=== PATIENT | female | born 1960 | race Asian ===

== ENCOUNTER 2020-12-03 18:45 | Inpatient (IN) | payer SELFPAY ==
[2020-12-03 19:14] LABS: Absolute Lymphocytes (CBC) 1.9 K/uL (0.7-4.9); Basophils % 0.3 % (0-1.3); Hematocrit 30.5 % (36.0-45.0); Lymphocytes % 17.9 % (15.3-44.8); MPV 6.6 fL (7.6-11.3); RBC Red Blood Cell Count 3.45 M/uL (3.86-4.86)
[2020-12-03 19:15] LABS: Protime INR 0.94
--- NOTE | 2020-12-03 19:26 | RAD REPORT ---
EXAM DESCRIPTION: CT - Head Brain Wo Cont - 12/03/2020 7:18 pm CLINICAL HISTORY: Headache;Dizziness COMPARISON: No comparisons TECHNIQUE: All CT scans are performed using dose optimization technique as appropriate and may inclu de automated exposure control or mA/KV adjustment according to patient size. FINDINGS: No intracranial hemorrhage, hydrocephalus or extra-axial fluid collection.No areas of brai n edema or evidence of midline shift. The paranasal sinuses and mastoids are clear. The calvarium is intact. IMPRESSION: No acute intracranial abnormality.
[2020-12-03 19:35] LABS: ALT/SGPT 26 U/L (12-78); AST/SGOT 25 U/L (15-37); Albumin 3.5 g/dL (3.4-5.0); Alkaline Phosphatase 60 U/L (45-117); BUN Blood Urea Nitrogen 10 mg/dL (7-18); Bicarbonate 23 mmol/L (21-32); Bilirubin Direct < 0.1 mg/dL (0-0.2); Bilirubin Total 0.3 mg/dL (0.2-1.0); Glucose Level 131 mg/dL (74-106); Magnesium 1.6 mg/dL (1.8-2.4); NT PRO-BNP 34 pg/mL (<125); Protein, Total 7.1 g/dL (6.4-8.2); Sodium Level 122 mmol/L (136-145); Troponin (Emerg Dept Use Only) < 0.02 ng/mL (0.0-0.045)
[2020-12-03 19:37] LABS: Potassium 2.7 mmol/L (3.5-5.1)
[2020-12-03] MEDS ORDERED: NA CHLORIDE 0.9% 500 ML ONE ×2 (20:04→20:38)
[2020-12-03] MEDS ORDERED: MECLIZINE HCL 12.5 MG TAB ONE (20:04)
[2020-12-03] MEDS ORDERED: ONDANSETRON 4 MG/2 ML VIAL ONE (20:04)
--- NOTE | 2020-12-03 20:17 | RAD REPORT ---
EXAM DESCRIPTION: RAD - Chest Single View - 12/03/2020 7:11 pm CLINICAL HISTORY: general weakness COMPARISON: No comparisons FINDINGS: No evidence of edema or pneumonia. The heart size is within normal limits.No acute osseous abnormality. No significant pleural effusions or pneumothorax. IMPRESSION: No acute cardiopulmonary disease.
[2020-12-03] MEDS ORDERED: MAGNESIUM SULFATE 1 gm IVPB 1 GM/100 ML BAG IV ONE (20:38)
[2020-12-03] MEDS ORDERED: KCL 20 MEQ/100 mL IVPB 20 MEQ/100 ML BAG IV ONE (20:39)
[2020-12-03 21:32] LABS: Urine Blood Trace-intact (Negative); Urine Glucose Negative (Negative); Urine Protein Negative (Negative); Urine Specific Gravity 1.015 (1.005-1.030)
[2020-12-03 21:32] LABS: Potassium 3.2 mmol/L (3.5-5.1)
--- NOTE | 2020-12-03 21:37 | P.HP ---
Certification for Inpatient Patient admitted to: Inpatient Patient will require the following post-hospital care: None Practitioner: I am a practitioner with admitting privileges, knowledge of patient current condition, hospital course, and medical plan of care. Services: Services provided to patient in accordance with Admission requirements found in Title 42 Section 412.3 of the Code of Federal Regulations Patient History Date of Service: 12/03/20 Primary Care Provider: None Reason for admission: Hyponatremia, hypokalemia History of Present Illness: 60-year-old [place] presents emergency department for confusion, generalized weakness, dizziness, nausea. [place] when she began complaining of the symptoms. Patient was evaluated in the emergency department, labs were significant for white blood cell count 10.6 hemoglobin 10.6 hematocrit 30.5 sodium 122 potassium 2.7 chloride 86 glucose 151. ED provider consulted with nephrology recommended 1 L normal saline bolus and repeat sodium level. Will admit for further evaluation and management. - Past Medical/Surgical History -: none -: Uterine cancer -: Hysterectomy Psychosocial/ Personal History: Patient lives at home with family - Family History Family History: Reviewed- Non-Contributory - Social History Smoking Status: Never smoker Alcohol use: No CD- Drugs: No Caffeine use: Yes Place of Residence: Home Review of Systems 10-point ROS is otherwise unremarkable General: Weakness, Malaise Physical Examination - Physical Exam General: Alert, In no apparent distress HEENT: Atraumatic, PERRLA, Mucous membr. moist/pink, EOMI, Sclerae nonicteric Neck: Supple, 2+ carotid pulse no bruit, No LAD, Without JVD or thyroid abnormality Respiratory: Clear to auscultation bilaterally, Normal air movement Cardiovascular: Regular rate/rhythm, Normal S1 S2 Gastrointestinal: Normal bowel sounds, No tenderness Musculoskeletal: No tenderness Integumentary: No rashes Neurological: Normal speech, Normal strength at 5/5 x4 extr, Normal tone, Normal affect - Studies Laboratory Data (last 24 hrs) 12/03/20 21:02: Sodium 121 L, Potassium 3.2 L, BUN 9, Creatinine 0.69, Glucose 131 H 12/03/20 18:45: PT 10.8, INR 0.94 12/03/20 18:45: WBC 10.60, Hgb 10.6 L, Hct 30.5 L, Plt Count 289 12/03/20 18:45: Sodium 122 L, Potassium 2.7 L*, BUN 10, Creatinine 0.69, Glucose 131 H, Magnesium 1.6 L, Total Bilirubin 0.3, AST 25, ALT 26, Alkaline Phosphatase 60 Assessment and Plan - Plan Assessment: Hyponatremia likely secondary to dehydration Hypokalemia Plan: Hyponatremia likely secondary to dehydration: Patient received 1 L normal saline bolus in the emergency department, recheck BMP pending, will discuss case with nephrology after results have returned to determine further plan of care. Daughter reports patient has relatively poor oral intake and did not drink much water while in the sun all day today, likely related to dehydration. Serum/urine osmolality pending, urine sodium pending. Patient does not take any diuretics or other home medications. Thyroid panel with morning labs. Hypokalemia: Protocol in place. DVT PPX: Code status: Discharge Plan: Home Plan to discharge in: 48 Hours - Advance Directives Does patient have a Living Will: No Does patient have a Durable POA for Healthcare: No - Code Status/Comfort Care Code Status Assessed: Yes (Full code) Critical Care: No Time Spent Managing Pts Care (In Minutes): 55
[2020-12-03 23:50] LABS: Urine Bacteria <20 /HPF (<20); Urine RBC <5 /HPF (NONE SEEN); Urine Urothelial Cells <5 /HPF (NONE SEEN)
[2020-12-03 23:57] LABS: Potassium 3.7 mmol/L (3.5-5.1)
[2020-12-04] MEDS ORDERED: NA CHLORIDE 0.9% 1,000 ML ONE
[2020-12-04] MEDS ORDERED: ACETAMINOPHEN 500 MG TAB PO PRN (01:45)
[2020-12-04] MEDS ORDERED: ONDANSETRON 4 MG/2 ML VIAL IV PRN (01:45)
[2020-12-04] MEDS ORDERED: NA CHLORIDE 0.9% 1,000 ML IV SCH (01:45)
[2020-12-04 04:30] LABS: Basophils % 0.1 % (0-1.3); Hematocrit 30.1 % (36.0-45.0); Lymphocytes % 11.9 % (15.3-44.8); MPV 6.6 fL (7.6-11.3); RBC Red Blood Cell Count 3.44 M/uL (3.86-4.86)
[2020-12-04 04:57] LABS: Albumin 3.3 g/dL (3.4-5.0); Bilirubin Total 0.4 mg/dL (0.2-1.0); Magnesium 2.2 mg/dL (1.8-2.4); Potassium 4.3 mmol/L (3.5-5.1); Protein, Total 7.1 g/dL (6.4-8.2); Thyroid Stimulating Hormone 0.654 uIU/mL (0.360-3.740)
[2020-12-04 05:40] VITALS: BMI 25.4
[2020-12-04] MEDS ORDERED: ENOXAPARIN 40 MG/0.4 ML SQ ONE (07:51)
[2020-12-04 08:25] VITALS: O2SAT 97
[2020-12-04] MEDS ORDERED: ENOXAPARIN 40 MG/0.4 ML SQ SCH (09:00)
[2020-12-04 11:13] VITALS: BP 96/62; TEMP 97.8
--- NOTE | 2020-12-04 12:27 | P.CNS ---
Date of Consult: 12/04/20 Reason for Consult: Hyponatremia Requesting Physician: Ceasar Levine Primary Care Provider: None Chief Complaint: Hyponatremia, hypokalemia History of Present Illness: 60-year-old Scottish presents emergency department for confusion, generalized weakness, dizziness, nausea. [place] the beach [place] when she began complaining of the symptoms. Patient was evaluated in the emergency department, labs were significant for white blood cell count 10.6 hemoglobin 10.6 hematocrit 30.5 sodium 122 potassium 2.7 chloride 86 glucose 151. ED provider consulted with nephrology recommended 1 L normal saline bolus and repeat sodium level. Will admit for further evaluation and management. Allergies No Known Allergies Allergy (Unverified 12/04/20 01:44) Home medications list reviewed: Yes Home Medications: NK [No Home Meds] 12/04/20 - Past Medical/Surgical History Diabetic: No -: none -: Uterine cancer -: Hysterectomy Psychosocial/ Personal History: Patient lives at home with family - Social History Alcohol use: No CD- Drugs: No Caffeine use: Yes Place of Residence: Home Review of Systems 10-point ROS is otherwise unremarkable Physical Examination Temp Pulse Resp BP Pulse Ox 97.8 F 73 14 96/62 97 12/04/20 11:12 12/04/20 11:12 12/04/20 11:12 12/04/20 11:12 12/04/20 11:12 General: Oriented x3, Cooperative HEENT: Atraumatic Neck: Supple Respiratory: Clear to auscultation bilaterally Cardiovascular: No edema, Regular rate/rhythm Gastrointestinal: Soft and benign, Non-distended Musculoskeletal: No clubbing, No contractures Integumentary: No rashes, No cyanosis Neurological: Normal speech Laboratory Data (last 24 hrs) 12/03/20 21:02: Sodium 121 L, Potassium 3.2 L, BUN 9, Creatinine 0.69, Glucose 131 H 12/03/20 18:45: PT 10.8, INR 0.94 12/03/20 18:45: WBC 10.60, Hgb 10.6 L, Hct 30.5 L, Plt Count 289 12/03/20 18:45: Sodium 122 L, Potassium 2.7 L*, BUN 10, Creatinine 0.69, Glucose 131 H, Magnesium 1.6 L, Total Bilirubin 0.3, AST 25, ALT 26, Alkaline Phosphatase 60 Imagings Data: EXAM DESCRIPTION: RAD - Chest Single View - 12/03/2020 7:11 pm CLINICAL HISTORY: general weakness COMPARISON: No comparisons FINDINGS: No evidence of edema or pneumonia. The heart size is within normal limits.No acute osseous abnormality. No significant pleural effusions or pneumothorax. IMPRESSION: No acute cardiopulmonary disease. EXAM DESCRIPTION: CT - Head Brain Wo Cont - 12/03/2020 7:18 pm CLINICAL HISTORY: Headache;Dizziness COMPARISON: No comparisons TECHNIQUE: All CT scans are performed using dose optimization technique as appropriate and may include automated exposure control or mA/KV adjustment according to patient size. FINDINGS: No intracranial hemorrhage, hydrocephalus or extra-axial fluid collection.No areas of brain edema or evidence of midline shift. The paranasal sinuses and mastoids are clear. The calvarium is intact. IMPRESSION: No acute intracranial abnormality. Conclusions/Impression: Hyponatremia improving with NS -Encourage nutrition Hypocalcemia -Recommend Vitamin D Hypomagnesemia -Replete magnesium Anemia in chronic illness -Monitor H&H Thank you kindly for the consultation. Case reviewed with Dr. Levine
[2020-12-04 12:51] LABS: BUN Blood Urea Nitrogen 11 mg/dL (7-18); Bicarbonate 29 mmol/L (21-32); Glucose Level 125 mg/dL (74-106); Potassium 4.1 mmol/L (3.5-5.1); Sodium Level 131 mmol/L (136-145)
--- NOTE | 2020-12-04 13:02 | P.DS ---
Admission Date: 12/03/20 Discharge Date: 12/04/20 Primary Care Provider: None Disposition: ROUTINE DISCHARGE Discharge Condition: GOOD Reason for Admission: Hyponatremia, hypokalemia Consultations: Nephrology - Dr. Domníguez Procedures: CXR (12/03): No evidence of edema or pneumonia. The heart size is within normal limits.No acute osseous abnormality. No significant pleural effusions or pneumothorax. IMPRESSION: No acute cardiopulmonary disease. CT Head (12/03): No intracranial hemorrhage, hydrocephalus or extra-axial fluid collection.No areas of brain edema or evidence of midline shift. The paranasal sinuses and mastoids are clear. The calvarium is intact. IMPRESSION: No acute intracranial abnormality. Problem List Hyponatremia secondary to dehydration / poor PO intake Hypokalemia Brief History of Present Illness: 60-year-old Spanish presents emergency department for confusion, generalized weakness, dizziness, nausea. Patient [place] the beach [place] with [place] when she began complaining of the symptoms. Patient was evaluated in the emergency department, labs were significant for white blood cell count 10.6 hemoglobin 10.6 hematocrit 30.5 sodium 122 potassium 2.7 chloride 86 glucose 151. ED provider consulted with nephrology recommended 1 L normal saline bolus and repeat sodium level. Will admit for further evaluation and management. Hospital Course: Patient's sodium improved to 131 with IVF. Her symptoms resolved and she was feeling back to her baseline. She ambulated to bathroom and was tolerating PO without issue. Family requested to be discharged as they were from out of town and would like to f/u with her doctor at home. Nephrology was initially consulted on admission given electrolyte abnormalities. Patient's recheck sodium remained stable at 131 after several hours of being off IVF. She was deemed stable for discharge home. No medications were prescribed. Vital Signs/Physical Exam: Temp Pulse Resp BP Pulse Ox 97.8 F 73 14 96/62 97 12/04/20 11:12 12/04/20 11:12 12/04/20 11:12 12/04/20 11:12 12/04/20 11:12 General: Alert, In no apparent distress, Oriented x3 HEENT: PERRLA, Sclerae nonicteric Neck: Supple, No LAD Respiratory: Clear to auscultation bilaterally, Normal air movement Cardiovascular: No edema, Regular rate/rhythm, Normal S1 S2 Gastrointestinal: Soft and benign, Non-distended, No tenderness Musculoskeletal: No tenderness Integumentary: No rashes, No significant lesion Neurological: Normal speech, Normal strength at 5/5 x4 extr, Normal affect Laboratory Data at Discharge: WBC 8.70 K/uL (4.3-10.9) D 12/04/20 04:16 Hgb 10.7 g/dL (12.0-15.0) L 12/04/20 04:16 Hct 30.1 % (36.0-45.0) L 12/04/20 04:16 Plt Count 276 K/uL (152-406) 12/04/20 04:16 PT 10.8 SECONDS (9.5-12.5) 12/03/20 18:45 INR 0.94 12/03/20 18:45 Sodium 131 mmol/L (136-145) L 12/04/20 12:25 Potassium 4.1 mmol/L (3.5-5.1) 12/04/20 12:25 BUN 11 mg/dL (7-18) 12/04/20 12:25 Creatinine 0.63 mg/dL (0.55-1.3) 12/04/20 12:25 Glucose 125 mg/dL (74-106) H 12/04/20 12:25 Magnesium 2.2 mg/dL (1.8-2.4) D 12/04/20 04:16 Total Bilirubin 0.4 mg/dL (0.2-1.0) 12/04/20 04:16 AST 27 U/L (15-37) 12/04/20 04:16 ALT 27 U/L (12-78) 12/04/20 04:16 Alkaline Phosphatase 57 U/L (45-117) 12/04/20 04:16 Triglycerides 219 mg/dL (<150) H 12/04/20 04:16 Cholesterol 220 mg/dL (<200) H 12/04/20 04:16 HDL Cholesterol 53 mg/dL (40-60) 12/04/20 04:16 Cholesterol/HDL Ratio 4.15 12/04/20 04:16 Home Medications: NK [No Home Meds] 12/04/20 Physician Discharge Instructions: You were found to be hyponatremic (low sodium). Likely from dehydration. You improved with IV fluid / rehydration. Your symptoms resolved and your sodium improved. Please ensure you are adequately hydrated and drink more water if you are exercising or out in the hot sun.. Follow up with PCP in 3-5 days. Recommend having a recheck of your sodium levels at that time as well. Diet: Regular Activity: Ad skylar Followup: NONE,NONE [Primary Care Provider] - 1 Week Time spent managing pt's care (in minutes): 40
--- NOTE | 2020-12-05 16:59 | ER ---
Nurse's Notes [facility] Name: Cash Bell Age: 60 yrs Sex: Female : 1960 Arrival Date: 12/03/2020 Time: 18:45 Bed 27 Private MD: Diagnosis: Hypo-osmolality and hyponatremia;Dizziness and giddiness;Hypokalemia Presentation: 12/03 18:46 Chief complaint: Patient's son or daughter states: "[place] 1000 and about two hours ago she said she didn't feel well. We gave her some Advil and just a little bit ago she said that she felt like she couldn't breath and she felt sick.". Coronavirus screen: Client denies travel out of the [place] in the last 14 days. difficulty breathing, Client presents with at least one sign or symptom that may indicate coronavirus-19. Standard/surgical mask placed on the client. Provider contacted for isolation considerations. Ebola Screen: Patient denies exposure to infectious person. Patient denies travel to an Ebola-affected area in the 21 days before illness onset. Initial Sepsis Screen: Does the patient meet any 2 criteria? No. Patient's initial sepsis screen is negative. Does the patient have a suspected source of infection? No. Patient's initial sepsis screen is negative. Risk Assessment: Do you want to hurt yourself or someone else? Patient reports no desire to harm self or others. Onset of symptoms was December 03, 2020. 18:46 Acuity: ABRAHAM 2 ss 18:46 Method Of Arrival: Wheelchair Triage Assessment: 12/04 00:38 Respiratory: Onset: The symptoms/episode began/occurred today, the patient has moderate kg shortness of breath. Historical: - Allergies: 12/03 18:48 No Known Allergies; ss - Home Meds: 18:48 None [Active]; ss - PMHx: 18:48 None; ss - Immunization history:: Adult Immunizations up to date, Client reports receiving the 2nd dose of the Covid vaccine. - Social history:: Smoking status: Patient denies any tobacco usage or history of. Screenin:43 Abuse screen: Denies threats or abuse. Denies injuries from another. Nutritional kg screening: No deficits noted. Tuberculosis screening: No symptoms or risk factors identified. Fall Risk None identified. No fall in past 12 months (0 pts). Secondary diagnosis (15 points) impaired mobility, IV access (20 points). Ambulatory Aid- None/Bed Rest/Nurse Assist (0 pts). Gait- Weak (10 pts.). Mental Status- Oriented to own ability (0 pts). Total Wyman Fall Scale indicates Low Risk Score (25-44 pts). Fall prevention measures have been instituted. Side Rails Up X 2 Placed close to Nursing Station Family Present and informed to notify staff if they need to leave bedside As available Patient and Family Educated on Fall Prevention Program and strategies. Assessment: 19:30 General: Appears uncomfortable, Behavior is anxious, restless. Pain: Complains of pain kg in Generalized. Neuro: Reports numbness in Generalized. Cardiovascular: Reports shortness of breath, Heart tones S1 S2 Capillary refill < 3 seconds Pulses are 3+ in right radial artery and left radial artery Rhythm is regular. Respiratory: Reports shortness of breath at rest Airway is patent Trachea midline Respiratory effort is even, unlabored, relaxed, Breath sounds are clear bilaterally. GI: No deficits noted. : No signs and/or symptoms were reported regarding the genitourinary system. : No deficits noted. 12/04 00:15 Reassessment: Patient reports continued dizziness at this time; Tong Terry, MACHINE ROOM ENGINEER aware. lp1 Vital Signs: 12/03 18:46 BP 115 / 71; Pulse 68; Resp 20; Temp 98.1(TE); Pulse Ox 100% on R/A; Weight 58.97 kg; ss Pain 0/10; 20:00 BP 116 / 67; Pulse 85; Resp 20; Pulse Ox 100% on R/A; kg 20:30 BP 119 / 76; Pulse 81; Resp 24; Pulse Ox 100% on R/A; kg 21:00 BP 108 / 85; Pulse 88; Resp 26; Pulse Ox 100% on R/A; kg 21:30 BP 115 / 74; Pulse 80; Resp 22; Pulse Ox 100% ; kg 22:00 BP 105 / 65; Pulse 77; Resp 25; Pulse Ox 100% on R/A; kg 23:00 BP 105 / 57; Pulse 83; Resp 18; Pulse Ox 100% ; kg 23:30 BP 102 / 71; Pulse 79; Resp 18; Pulse Ox 100% ; kg 23:45 BP 116 / 74; Pulse 83; Resp 19; Pulse Ox 100% ; kg 12/04 00:00 BP 109 / 61; Pulse 88; Resp 20; Pulse Ox 100% ; kg 00:30 BP 103 / 78; Pulse 84; Resp 20; Pulse Ox 100% ; kg ED Course: 12/03 18:45 Patient arrived in ED. la1 18:45 Inserted saline lock: 20 gauge in right antecubital area, using aseptic technique. dh3 Blood collected. 18:47 Shailesh Mclean PA is PHCP. cp 18:47 Bunny Odom MD is Attending Physician. cp 18:47 Triage completed. ss 18:48 Arm band placed on right wrist. ss 18:56 Initial lab(s) drawn, by ri, sent to lab. dh3 18:58 Jenn Rodarte RN is Primary Nurse. kg 19:01 Attending Physician role handed off by Bunny Odom MD cp 19:01 Evangelista Cox MD is Attending Physician. cp 19:11 XRAY Chest (1 view) In Process Unspecified. EDMS 19:16 CT Head Brain wo Cont In Process Unspecified. EDMS 21:00 Inserted saline lock: 20 gauge in right antecubital area, using aseptic technique. kg 22:43 Patient has correct armband on for positive identification. Fall risk band placed. Bed kg in low position. Adult w/ patient. 12/04 00:15 Report received from ADRI Barajas. lp1 00:23 Bunny Nowak MD is Hospitalizing Provider. cp 00:30 No provider procedures requiring assistance completed. Patient admitted, IV remains in lp1 place. Administered Medications: 12/03 19:49 Drug: NS 0.9% 500 ml Route: IV; Rate: bolus; Site: right antecubital; kg 19:50 Drug: Meclizine 25 mg Route: PO; kg 19:50 Drug: Zofran (Ondansetron) 4 mg Route: IVP; Site: right antecubital; kg 20:28 Drug: Potassium Chloride 20 mEq Route: IV; Rate: calculated rate; Site: right kg antecubital; 20:28 Drug: Magnesium Sulfate 1 grams Route: IVPB; Infused Over: 1 hrs; Site: right kg antecubital; 20:29 Drug: NS 0.9% 500 ml Route: IV; Rate: bolus; Site: right antecubital; kg 12/04 00:41 Drug: NS 0.9% 1000 ml Route: IV; Rate: 75 ml/hr; Site: right antecubital; lp1 01:23 Follow up: IV Status: Infusion continued upon admission lp1 Outcome: 00:24 Decision to Hospitalize by Provider. cp 00:30 Admitted to ER Hold. Please see [facility] for further documentation. lp1 00:30 Condition: stable 00:30 Instructed on the need for admit. 14:12 Patient left the ED. ld1 Signatures: Dispatcher [employer] EDMS Suyapa Fraser RN RN Carlyn Sweeney RN RN lp1 Tong Terry, OWNER/PHOTOGRAPHER-C OWNER/PHOTOGRAPHER-Cla1 Shailesh Mclean PA PA cp Herrera, Deanna [facility] Anila Castaneda, RN RN ld1 Jenn Rodarte RN RN kg
--- NOTE | 2020-12-05 16:59 | EDPHYS ---
Physician Documentation [facility] Name: Cash Bell Age: 60 yrs Sex: Female : 1960 Arrival Date: 12/03/2020 Time: 18:45 Bed 27 Private MD: ED Physician Evangelista Cox HPI: 12/03 18:55 This 60 yrs old Female presents to ER via Wheelchair with complaints of Shortness cp Of Breath, Nausea. 18:55 The patient presents with dizziness, generalized weakness. cp 18:55 Onset: The symptoms/episode began/occurred suddenly, today, [place] beach. Associated cp signs and symptoms: Pertinent positives: shortness of breath, Pertinent negatives: abdominal pain, chest pain, confusion, diaphoresis, focal weakness, syncope. Historical: - Allergies: 18:48 No Known Allergies; ss - Home Meds: 18:48 None [Active]; ss - PMHx: 18:48 None; ss - Immunization history:: Adult Immunizations up to date, Client reports receiving the 2nd dose of the Covid vaccine. - Social history:: Smoking status: Patient denies any tobacco usage or history of. ROS: 19:00 Constitutional: Negative for body aches, chills, fever, poor PO intake. cp 19:00 Eyes: Negative for injury, pain, redness, and discharge. cp 19:00 Cardiovascular: Negative for chest pain, edema, palpitations. 19:00 Respiratory: Negative for cough, shortness of breath, wheezing. 19:00 Abdomen/GI: Positive for nausea, vomiting, diarrhea, Negative for abdominal pain, hematemesis, black/tarry stool, rectal bleeding. Exam: 19:02 ECG was reviewed by the Attending Physician. cp 19:05 Constitutional: The patient appears alert, awake, non-diaphoretic, non-toxic, well cp developed, well nourished. 19:05 Head/Face: Normocephalic, atraumatic. cp 19:05 Eyes: Periorbital structures: appear normal, Pupils: equal, round, and reactive to light and accomodation, Extraocular movements: intact throughout, Conjunctiva: normal, no exudate, no injection, Sclera: no appreciated abnormality, Lids and lashes: appear normal, bilaterally. 19:05 ENT: External ear(s): are unremarkable, Ear canal(s): are normal, clear, TM's: dullness, bilaterally, Nose: is normal, Mouth: Lips: moist, Oral mucosa: pink and intact, moist, Posterior pharynx: Airway: no evidence of obstruction, patent. 19:05 Neck: ROM/movement: is normal, is supple, without pain, no range of motions limitations. 19:05 Chest/axilla: Inspection: normal, Palpation: is normal, no crepitus, no tenderness. 19:05 Cardiovascular: Rate: normal, Rhythm: regular, Edema: is not appreciated, JVD: is not appreciated. 19:05 Respiratory: the patient does not display signs of respiratory distress, Respirations: normal, no use of accessory muscles, no retractions, labored breathing, is not present, Breath sounds: are clear throughout, no decreased breath sounds, no stridor, no wheezing. 19:05 Abdomen/GI: Inspection: abdomen appears normal, Palpation: abdomen is soft and non-tender, in all quadrants. 19:05 Neuro: Orientation: to person, place \\T\\ time. Mentation: able to follow commands, slow to respond, Cerebellar function: Romberg testing is negative, Motor: moves all fours, general weakness with no focal deficits, Sensation: tingling, that is mild, of the face, Gait: is unsteady. Vital Signs: 18:46 BP 115 / 71; Pulse 68; Resp 20; Temp 98.1(TE); Pulse Ox 100% on R/A; Weight 58.97 kg; ss Pain 0/10; 20:00 BP 116 / 67; Pulse 85; Resp 20; Pulse Ox 100% on R/A; kg 20:30 BP 119 / 76; Pulse 81; Resp 24; Pulse Ox 100% on R/A; kg 21:00 BP 108 / 85; Pulse 88; Resp 26; Pulse Ox 100% on R/A; kg 21:30 BP 115 / 74; Pulse 80; Resp 22; Pulse Ox 100% ; kg 22:00 BP 105 / 65; Pulse 77; Resp 25; Pulse Ox 100% on R/A; kg 23:00 BP 105 / 57; Pulse 83; Resp 18; Pulse Ox 100% ; kg 23:30 BP 102 / 71; Pulse 79; Resp 18; Pulse Ox 100% ; kg 23:45 BP 116 / 74; Pulse 83; Resp 19; Pulse Ox 100% ; kg 12/04 00:00 BP 109 / 61; Pulse 88; Resp 20; Pulse Ox 100% ; kg 00:30 BP 103 / 78; Pulse 84; Resp 20; Pulse Ox 100% ; kg MDM: 12/03 22:30 Data reviewed: vital signs, nurses notes, lab test result(s), EKG, radiologic studies, cp CT scan, plain films. 22:30 Test interpretation: by ED physician or midlevel provider: ECG. Physician consultation: cristina Juárez MD was called at 22:25, was contacted at 22:25, regarding consult, patient's condition, wants patient to be given NS fluids at 75 cc/hr and recheck serum sodium at 0400. 12/04 00:24 Patient medically screened. 12/03 18:50 Order name: COVID-19 : Document "Date of Symptom Onset" if Symptomatic. 12/03 18:50 Order name: Basic Metabolic Panel 12/03 18:50 Order name: CBC with Diff 12/03 18:50 Order name: LFT's 12/03 18:50 Order name: Magnesium; Complete Time: 19:49 cp 12/03 18:50 Order name: NT PRO-BNP; Complete Time: 19:49 12/03 18:50 Order name: PT-INR; Complete Time: 19:49 12/03 18:50 Order name: Troponin (emerg Dept Use Only); Complete Time: 19:49 12/03 18:50 Order name: Urine Microscopic Only; Complete Time: 05:07 12/03 18:50 Order name: CORONAVIRUS EDSC 12/03 18:50 Order name: Basic Metabolic Panel; Complete Time: 19:49 EDSC 12/03 20:09 Interpretation: Normal except: NA 122; CL 86; GLUC 131; GFR 87; K 2.7; CA 8.0. 12/03 18:50 Order name: CBC with Automated Diff; Complete Time: 19:49 EDSC 12/03 20:01 Interpretation: Normal except: RBC 3.45; HGB 10.6; HCT 30.5; MPV 6.6. cp 12/03 18:50 Order name: Liver (Hepatic) Function; Complete Time: 19:49 EDSC 12/03 19:02 Order name: glucometer results - FOR PT WITH NO ID 12/03 19:03 Order name: Glucose, Ancillary(No Armband); Complete Time: 19:49 [facility] 12/03 20:08 Order name: Urine Osmolality; Complete Time: 22:25 [facility] 12/03 20:08 Order name: Osmolality, Serum; Complete Time: 05:07 [facility] 12/03 20:08 Order name: Urine Sodium Random; Complete Time: 22:13 [facility] 12/03 20:11 Order name: BMP: repeat after 1 liter NS bolus cp 12/03 20:12 Order name: Basic Metabolic Panel; Complete Time: 22:13 [facility] 12/03 21:31 Order name: Urine Dipstick-Ancillary; Complete Time: 22:13 [facility] 12/03 22:18 Order name: SARS-COV-2 RT PCR; Complete Time: 22:25 [facility] 12/03 22:28 Order name: BMP kg 12/03 23:57 Order name: Basic Metabolic Panel; Complete Time: 05:07 [facility] 12/04 05:12 Order name: CBC with Automated Diff [facility] 12/04 05:12 Order name: Comprehensive Metabolic Panel [facility] 12/04 05:12 Order name: Lipid Profile [facility] 12/04 05:12 Order name: T4 Free [facility] 12/04 05:12 Order name: Magnesium [facility] 12/03 18:50 Order name: XRAY Chest (1 view); Complete Time: 20:18 12/03 18:50 Order name: EKG; Complete Time: 18:51 12/03 18:50 Order name: Cardiac monitoring; Complete Time: 18:51 12/03 18:50 Order name: EKG - Nurse/Tech; Complete Time: 18:51 12/03 18:50 Order name: IV Saline Lock; Complete Time: 18:51 12/03 18:50 Order name: Labs collected and sent; Complete Time: 18:56 12/03 18:50 Order name: O2 Per Protocol; Complete Time: 18:51 12/03 18:50 Order name: O2 Sat Monitoring; Complete Time: 18:51 12/03 18:50 Order name: Urine Dipstick-Ancillary (obtain specimen); Complete Time: 00:35 12/03 18:50 Order name: CT Head Brain wo Cont; Complete Time: 19:49 12/04 05:12 Order name: Thyroid Stimulating Hormone EDMS 12/04 12:51 Order name: Basic Metabolic Panel EDMS EC/25 19:02 Rate is 85 beats/min. Rhythm is regular. DE interval is normal. QRS interval is normal. cp QT interval is normal. Interpreted by me. Reviewed by me. Administered Medications: 19:49 Drug: NS 0.9% 500 ml Route: IV; Rate: bolus; Site: right antecubital; kg 19:50 Drug: Meclizine 25 mg Route: PO; kg 19:50 Drug: Zofran (Ondansetron) 4 mg Route: IVP; Site: right antecubital; kg 20:28 Drug: Potassium Chloride 20 mEq Route: IV; Rate: calculated rate; Site: right kg antecubital; 20:28 Drug: Magnesium Sulfate 1 grams Route: IVPB; Infused Over: 1 hrs; Site: right kg antecubital; 20:29 Drug: NS 0.9% 500 ml Route: IV; Rate: bolus; Site: right antecubital; kg 12/04 00:41 Drug: NS 0.9% 1000 ml Route: IV; Rate: 75 ml/hr; Site: right antecubital; lp1 01:23 Follow up: IV Status: Infusion continued upon admission lp1 Disposition Summary: 12/04/20 00:24 Hospitalization Ordered Hospitalization Status: Inpatient Admission cp Provider: Bunny Nowak cp Condition: Stable cp Problem: new cp Symptoms: are unchanged cp Bed/Room Type: Standard Location: [facility] ER HOLD(12/04/20 00:42) Room Assignment: ERHOLD-(12/04/20 00:42) cg Diagnosis - Hypo-osmolality and hyponatremia cp - Dizziness and giddiness cp - Hypokalemia cp Forms: - Medication Reconciliation Form cp - SBAR form cp Signatures: Dispatcher [employer] EDSC Suyapa Fraser RN RN Carlyn Sweeney RN RN lp1 Tong Terry FNP-Erika YANGP-Cla1 Shailesh Mclean PA PA cp Shanna Galvez RN RN cg Jenn Rodarte RN RN kg Corrections: (The following items were deleted from the chart) 12/03 19:50 19:50 Normal except: NA 122; K 2.7; CL 86; GLUC 131; GFR 87. cp cp 19:50 19:50 Normal except: NA 122; CL 86; GLUC 131; GFR 87. cp cp 20:09 19:50 Normal except: NA 122; CL 86; GLUC 131; GFR 87; K 2.7. cp cp 20:51 20:30 CORONAVIRUS+MRARABELLA.BRZ ordered. EDMS EDMS 12/04 00:42 00:24 Telemetry/MedSurg (Inpatient) cp cg 00:42 00:24 cp cg
== END 2020-12-04 13:50 | disposition home or self-care (01) | DRG 641 ==
LOC: ER 18:45 → ERHOLD 21:27
PROVIDERS: ADMIT Hospitalist; ATTEND Hospitalist
DX: E87.1 Hypo-osmolality and hyponatremia (principal); E86.0 Dehydration; R41.0 Disorientation, unspecified; E87.6 Hypokalemia; Z85.42 Personal history of malignant neoplasm of other parts of uterus; Z20.822 Contact with and (suspected) exposure to COVID-19
CPT/HCPCS: 36415; 70450; 71045; 80048; 80053; 80061; 80076; 81003; 81015; 82947; 83735; 83880; 83930; 83935; 84300; 84439; 84443; 84484; 85025; 85610; 93005; 96361; 96374; 96375; 99285; J1650; J2405; J3475; J3480; J7030; J7040; U0003

== ENCOUNTER 2021-12-02 20:19 | Inpatient (IN) | payer SELFPAY ==
--- NOTE | 2021-12-02 20:51 | RAD REPORT ---
EXAM DESCRIPTION: CT - Ct Stroke Brain Wo Cont - 12/02/2021 8:42 pm CLINICAL HISTORY: altered mental status COMPARISON: Head Brain Wo Cont dated 12/03/2020 TECHNIQUE: All CT scans are performed using dose optimization technique as appropriate and may inclu de automated exposure control or mA/KV adjustment according to patient size. FINDINGS: No intracranial hemorrhage, hydrocephalus or extra-axial fluid collection.No areas of brai n edema or evidence of midline shift. The paranasal sinuses and mastoids are clear. The calvarium is intact. IMPRESSION: No acute intracranial abnormality. Called to Dr. Meredith by Dr. Pyle at 2046 on 12/02/21
[2021-12-02] MEDS ORDERED: NA CHLORIDE 0.9% 1,000 ML ONE (20:54)
[2021-12-02 21:04] LABS: Absolute Lymphocytes (CBC) 1.4 K/uL (0.7-4.9); Hematocrit 30.2 % (36.0-45.0); Lymphocytes % 14.2 % (15.3-44.8); MCV 88.2 fL (80-100); MPV 6.8 fL (7.6-11.3); Protime INR 0.94; RBC Red Blood Cell Count 3.43 M/uL (3.86-4.86)
--- NOTE | 2021-12-02 21:10 | RAD REPORT ---
EXAM DESCRIPTION: CT - Head angio - 12/02/2021 9:01 pm CLINICAL HISTORY: ams COMPARISON: None TECHNIQUE: CT angiography of the head was performed with MIPs. All CT scans are performed using dose optimization technique as appropriate and may include automated exposure control or mA/KV adjustment according to patient size. FINDINGS: Anterior circulation: No aneurysm or large vessel occlusion. No hemodynamically significant stenosis. No arteriovenous malf ormation identified. Posterior circulation: type right BOTTOM POUNDER CEMENT SHOES. No aneurysm or large vessel occlusion. No hemodynamically significant stenosis. No arteriovenous malformation identified. Left dominant vertebral artery. The right vertebral artery terminates in a branch of the PICA. IMPRESSION: No significant flow abnormality is detected.
--- NOTE | 2021-12-02 21:11 | RAD REPORT ---
EXAM DESCRIPTION: CT - Neck Angio - 12/02/2021 9:02 pm CLINICAL HISTORY: dizziness COMPARISON: Head angio dated 12/02/2021 TECHNIQUE: CT angiography of the neck vessels was performed with MIPs. All CT scans are performed using dose optimization technique as appropriate and may include automated exposure control or mA/KV adjustment according to patient size. FINDINGS: A left aortic arch is identified with normal three vessel configuration of the great vesse ls. No significant flow abnormality is seen of the common carotid bilaterally. No significant stenosis is identified involving the cervical segments of both internal carotid arteri es. Normal flow is seen within both vertebral arteries. Left dominant vertebral artery IMPRESSION: No significant flow abnormality of the neck vessels is identified.
[2021-12-02] MEDS ORDERED: ONDANSETRON 4 MG/2 ML VIAL ONE (21:13)
[2021-12-02 21:15] LABS: Potassium 3.1 mmol/L (3.5-5.1); Troponin High Sensitivity 14.1 pg/mL (<58.9)
--- NOTE | 2021-12-02 21:17 | RAD REPORT ---
EXAM DESCRIPTION: CTChest Abd Pelvis W Con - 12/02/2021 9:02 pm CLINICAL HISTORY: ams COMPARISON: Head angio dated 12/02/2021 TECHNIQUE: CT of the chest, abdomen, and pelvis was performed with IV. All CT scans are performed using dose optimization technique as appropriate and may include automated exposure control or mA/KV adjustment according to patient size. FINDINGS: Thorax: Chest Wall: No abnormal mass Lungs: No acute abnormality. Mild motion artifact. Pleura: A single noncalcified pleural plaque is present along the right lower lobe. Nereida/Mediastinum: No lymphadenopathy. Moderately thickened distal esophagus suggesting esophagitis. Aorta/Pulmonary Arteries: Unremarkable Heart: Normal size. Abdomen/Pelvis: Liver: No acute abnormality or suspicious lesions. Biliary: No biliary ductal dilatation. Stomach: No significant focal abnormality. Duodenum: No significant focal abnormality. Pancreas: No significant abnormality. Spleen: Atrophic spleen. Adrenal: No suspicious lesions. Kidney/ureter: No hydronephrosis. No renal calculi. Retroperitoneum: No retroperitoneal adenopathy. Vascular: No aneurysm. Bowel: Mild wall thickening and mucosal hyperenhancement involving the colon. There are portions of t he distal ileum that are also hyperenhancing. The terminal ileum is unremarkable. Mesenteric edema is present. . Peritoneum: Small volume ascites. Swirling of the mesentery noted within the pelvis. None of the smal l bowel is, by definition, dilated. It is prominent. Bladder: Grossly unremarkable. Reproductive: No adnexal masses. Bones: No acute fracture. Other: n/a IMPRESSION: 1. Findings most consistent with an enterocolitis. The differential includes infectious and inflammatory etiologies primarily. Ischemia less likely. 2. No acute findings within the chest. 3. Incidental findings as noted above.
[2021-12-02 21:33] LABS: Urine Blood Trace-intact (Negative); Urine Glucose Negative (Negative); Urine Protein Negative (Negative); Urine Specific Gravity 1.015 (1.005-1.030)
[2021-12-02 21:39] LABS: Specific Gravity 1.015 (1.005-1.030); Urine Bilirubin Negative (Negative); Urine Blood Trace-intact (Negative); Urine Clarity Clear (Clear); Urine Color Yellow (Yellow); Urine Glucose Negative (Negative); Urine Protein Negative (Negative); Urine Urobilinogen 0.2 mg/dL (0.2-1.0)
[2021-12-02 21:48] LABS: Urine Bacteria None Seen /HPF (<20); Urine RBC <5 /HPF (None Seen)
--- NOTE | 2021-12-02 21:59 | RAD REPORT ---
EXAM DESCRIPTION: RAD - Chest Single View - 12/02/2021 9:51 pm CLINICAL HISTORY: altered mental status COMPARISON: Chest Single View dated 12/03/2020 FINDINGS: Lines: None. Lungs: No evidence of edema or pneumonia. Pleural: No significant pleural effusions or pneumothorax. Cardiac: The heart size is within normal limits. Bones: No acute fractures. Other: IMPRESSION: No acute cardiopulmonary disease.
--- NOTE | 2021-12-02 22:13 | ER ---
Nurse's Notes [facility] Name: Cash Bell Age: 61 yrs Sex: Female : 1960 Arrival Date: 12/02/2021 Time: 20:22 Bed 5 Private MD: Diagnosis: Hypo-osmolality and hyponatremia;Altered mental status, unspecified Presentation: 12/02 20:38 Chief complaint: Patient's son or daughter states: "We went to the beach and about 3 vc1 she started feeling dizzy. We thought she just hadn't drank enough water so we made her leave gave her some water and food. She ate and felt better then around 6:30 she started throwing up then we couldn't get her to respond to us.". Onset of symptoms was December 02, 2021 at 13:00. 20:38 Method Of Arrival: Wheelchair vc1 20:38 Acuity: ABRAHAM 2 vc1 21:35 Coronavirus screen: At this time, the client does not indicate any symptoms associated as6 with coronavirus-19. Ebola Screen: No symptoms or risks identified at this time. Initial Sepsis Screen: Does the patient meet any 2 criteria? No. Patient's initial sepsis screen is negative. Does the patient have a suspected source of infection? No. Patient's initial sepsis screen is negative. Risk Assessment: Do you want to hurt yourself or someone else? Unable to obtain. Historical: - Allergies: 21:35 Unable to obtain; as6 - Home Meds: 21:35 Unable to obtain [Active]; as6 - PMHx: 21:35 Unable to Obtain; as6 - PSHx: 21:35 Unable to Obtain; as6 - Immunization history:: Adult Immunizations unknown. - Social history:: Smoking status: unknown. Screenin:05 The patient is not alert, or is unable to follow commands. Bedside swallow screening as6 discontinued. Patient kept NPO until cleared by Speech Therapy or Physician. 21:35 Abuse screen: Denies threats or abuse. Denies injuries from another. Nutritional as6 screening: No deficits noted. Tuberculosis screening: No symptoms or risk factors identified. Fall Risk None identified. Assessment: 20:30 General: Appears ill, Behavior is drowsy, restless. Pain: Unable to use pain scale. as6 Patient appears to be moaning, restless, FLACC scale score is 2 out of 10. Neuro: Level of Consciousness is lethargic. Respiratory: Respiratory effort is even, unlabored. GI: Pt is actively vomiting undigested food. Vital Signs: 20:27 BP 110 / 60; Pulse 66; Pulse Ox 100% on R/A; Weight 45.36 kg; Height 5 ft. (152.40 cm); as6 21:06 BP 101 / 59; Pulse 85; Resp 25; Pulse Ox 100% on R/A; as6 21:34 BP 106 / 83; Pulse 88; Resp 25 S; Pulse Ox 100% on R/A; as6 21:35 Temp 97.4(A); as6 22:11 BP 110 / 64; Pulse 63; Resp 17 S; Pulse Ox 100% on R/A; as6 22:50 BP 118 / 67; Pulse 85; Resp 26 S; Pulse Ox 99% on R/A; as6 12/04 10:43 BP 124 / 60; Pulse 75; Pulse Ox 99% ; mb7 12/02 20:27 Body Mass Index 19.53 (45.36 kg, 152.40 cm) as6 ED Course: 12/02 20:22 Patient arrived in ED. jj6 20:26 Michael Orourke, RN is Primary Nurse. as6 20:30 Inserted saline lock: 18 gauge in right antecubital area, using aseptic technique. as6 Blood collected. 20:31 Kei Cedillo PA is PHCP. [facility] 20:31 Derrek Meredith DO is Attending Physician. [facility] 20:39 Patient has correct armband on for positive identification. Placed in gown. Bed in low mh5 position. Call light in reach. Side rails up X2. Adult w/ patient. Warm blanket given. monitoring specialist on. Pulse ox on. NIBP on. 20:39 Initial lab(s) drawn, by ED staff, held in ED. 5 20:40 Triage completed. vc1 20:40 Basic Metabolic Panel Sent. mh5 20:40 CBC with Diff Sent. mh5 20:40 Protime (+inr) Sent. 5 20:40 Ptt, Activated Sent. 5 20:44 CT Stroke Brain w/o Contrast In Process Unspecified. EDMS 21:[address] In Process Unspecified. EDMS 21:04 CT Neck Angio In Process Unspecified. EDMS 21:04 Chest Abd Pelvis Wo Con In Process Unspecified. EDMS 21:18 Notified Nurse Practitioner and/or Physician Supervisor Forming And Tempering of a critical lab result(s), linda Sodium 116, [place] 80 Kei CHARLES notified. 21:25 Gutierrez cath inserted, using sterile technique, 16 Fr., by ED staff, balloon inflated, to as6 gravity drainage, urine specimen collected. 21:36 Arm band placed on. as6 21:53 Stroke CXR 1 View In Process Unspecified. EDMS 22:12 Ceasar Levine MD is Hospitalizing Provider. jmm 22:21 No provider procedures requiring assistance completed. Patient admitted, IV remains in as6 place. Administered Medications: 22:16 Discontinued: NS 0.9% 1000 ml IV at 1000 ml once la1 21:08 Drug: NS 0.9% 1000 ml Route: IV; Rate: 1000 ml; Site: right antecubital; kl 21:08 Drug: Zofran (Ondansetron) 4 mg Route: IVP; Site: right antecubital; kl 22:51 Follow up: Response: No adverse reaction as6 21:20 CANCELLED (Duplicate Order): NS 0.9% 1000 ml IV at 1 bolus Per protocol; 1000 mL bolus [facility] 22:16 Drug: NS 0.9% 1000 ml Route: IV; Rate: 60 ml/hr; Site: left antecubital; la1 22:51 Follow up: IV Status: Infusion continued upon admission as6 Medication: 22:21 VIS not applicable for this client. as6 Output: 12/03 06:56 Urine: 1800ml (Gutierrez); Total: 1800ml. aa9 Outcome: 12/02 22:13 Decision to Hospitalize by Provider. jmm 22:21 Admitted to ER Hold. [facility] for further documentation. as6 22:21 Condition: stable 22:21 Instructed on the need for admit. 12/05 09:31 Patient left the ED. jh6 Signatures: Dispatcher [employer] EDMS Isabel Jones RN RN kl Mickail, Joel, PA PA jmm Ballard, Brenda, RN RN bb Attema, Lee, B2B SALES EXECUTIVE-C B2B SALES EXECUTIVE-[facility]1 Karen Rangel [facility] Dana Banguraj6 Michael Orourke, RN RN as6 Dana Parra RN RN jh6 Sona Gilman 7 Alley Shook, RN RN vc1 Yoana Lela, RN RN aa9
--- NOTE | 2021-12-02 22:13 | EDPHYS ---
Physician Documentation [facility] Name: Cash Bell Age: 61 yrs Sex: Female : 1960 Arrival Date: 12/02/2021 Time: 20:22 Bed 5 Private MD: ED Physician Derrek Meredith HPI: 12/02 20:36 This 61 yrs old Female presents to ER via Wheelchair with complaints of [facility] Dizziness, Vomiting, Altered Mental Status. 20:36 This is a 61-year-old female with no known chronic medical conditions the presents [facility] emerged department with complaints of vomiting, dizziness beginning around 3 PM today. [place] Family states the patient became altered just prior to arrival.. Historical: - Allergies: 21:35 Unable to obtain; as6 - Home Meds: 21:35 Unable to obtain [Active]; as6 - PMHx: 21:35 Unable to Obtain; as6 - PSHx: 21:35 Unable to Obtain; as6 - Immunization history:: Adult Immunizations unknown. - Social history:: Smoking status: unknown. ROS: 20:36 Unable to obtain ROS due to altered mental status. [facility] Exam: 20:36 Head/Face: atraumatic. Eyes: EOMI, no conjunctival erythema appreciated ENT: Moist [facility] Mucus Membranes Neck: Trachea midline, Supple Chest/axilla: Normal chest wall appearance and motion. Cardiovascular: Regular rate and rhythm. No edema appreciated Respiratory: Normal respirations, no respiratory distress appreciated Abdomen/GI: Non distended Back: Normal ROM Skin: General appearance color normal MS/ Extremity: Moves all extremities, no obvious deformities appreciated, no edema noted to the lower extremities 20:36 Constitutional: The patient appears obviously ill. 20:36 Neuro: Orientation: Not oriented to person, place, time, Mentation: unable to follow commands, somnolent, responsive to pain. 20:36 Psych: exam not indicated. 21:10 ECG was reviewed by the Attending Physician. ms3 Vital Signs: 20:27 BP 110 / 60; Pulse 66; Pulse Ox 100% on R/A; Weight 45.36 kg; Height 5 ft. (152.40 cm); as6 21:06 BP 101 / 59; Pulse 85; Resp 25; Pulse Ox 100% on R/A; as6 21:34 BP 106 / 83; Pulse 88; Resp 25 S; Pulse Ox 100% on R/A; as6 21:35 Temp 97.4(A); as6 22:11 BP 110 / 64; Pulse 63; Resp 17 S; Pulse Ox 100% on R/A; as6 22:50 BP 118 / 67; Pulse 85; Resp 26 S; Pulse Ox 99% on R/A; as6 12/04 10:43 BP 124 / 60; Pulse 75; Pulse Ox 99% ; mb7 12/02 20:27 Body Mass Index 19.53 (45.36 kg, 152.40 cm) as6 MDM: 12/02 20:36 Patient medically screened. ms3 22:10 Data reviewed: vital signs, nurses notes. Counseling: I had a detailed discussion with hattie the patient and/or guardian regarding: the historical points, exam findings, and any diagnostic results supporting the discharge/admit diagnosis, lab results, the need for further work-up and treatment in the hospital. ED course: I discussed the patient with Dr. Fuller whom recommended 60 ml/hr ns with repeat bmp at 11 pm. 12/03 04:21 ED course: I was immediately available on-site in the Emergency Department for ms3 consultation in the care of the patient.. 12/02 20:37 Order name: Basic Metabolic Panel; Complete Time: 21:19 ms3 12/02 20:37 Order name: CBC with Diff; Complete Time: 21:19 ms3 12/02 20:37 Order name: Protime (+inr); Complete Time: 21:11 ms3 12/02 20:37 Order name: Ptt, Activated; Complete Time: 21:11 ms3 12/02 20:38 Order name: Troponin High Sensitivity; Complete Time: 21:19 ms3 12/02 20:49 Order name: Glucose, Ancillary Testing; Complete Time: 20:50 EDMS 12/02 21:19 Order name: Urine Osmolality; Complete Time: 22:17 la1 12/02 21:19 Order name: Urine Potassium Random; Complete Time: 21:49 la1 12/02 21:19 Order name: Osmolality, Serum; Complete Time: 22:17 la1 12/02 21:19 Order name: Urine Creatinine; Complete Time: 22:04 la1 12/02 21:19 Order name: Urine Sodium Random; Complete Time: 21:49 la1 07/24 21:34 Order name: Urine Dipstick-Ancillary; Complete Time: 21:40 EDMS 12/02 21:39 Order name: Urinalysis; Complete Time: 21:49 MS 12/02 22:01 Order name: SARS RAPID; Complete Time: 23:23 la12/02 22:59 Order name: BMP as6 12/02 23:21 Order name: UR CL RANDOM; Complete Time: 23:23 EDMS 12/02 23:58 Order name: Basic Metabolic Panel; Complete Time: 23:59 EDMS 12/03 03:50 Order name: Basic Metabolic Panel; Complete Time: 18:10 EDMS 12/03 05:13 Order name: CBC with Automated Diff; Complete Time: 18:10 MS 12/03 05:36 Order name: T4 Free; Complete Time: 18:10 EDMS 12/03 05:36 Order name: Magnesium; Complete Time: 18:10 EDMS 12/03 05:36 Order name: Thyroid Stimulating Hormone; Complete Time: 18:10 [facility] 12/03 06:11 Order name: Cortisol; Complete Time: 18:10 EDMS 12/03 06:51 Order name: Phosphorus; Complete Time: 18:10 EDMS 12/03 07:18 Order name: Basic Metabolic Panel; Complete Time: 18:10 [facility] 12/03 10:30 Order name: Basic Metabolic Panel; Complete Time: 18:10 MS 12/03 13:24 Order name: Basic Metabolic Panel; Complete Time: 18:10 MS 12/03 17:06 Order name: Basic Metabolic Panel; Complete Time: 18:10 [facility] 12/03 19:15 Order name: Basic Metabolic Panel [facility] 12/02 20:37 Order name: CT Stroke Brain w/o Contrast; Complete Time: 20:55 ny3 12/02 20:37 Order name: Stroke CXR 1 View; Complete Time: 22:04 [facility] 12/02 20:48 Order name: Head Angio CT; Complete Time: 21:11 [facility] 12/02 20:48 Order name: CT Neck Angio; Complete Time: 21:14 [facility] 12/02 21:00 Order name: Chest Abd Pelvis Wo Con; Complete Time: 21:30 [facility] 12/03 21:13 Order name: Lactate [facility] 12/04 00:19 Order name: Lactate Sepsis 2 HR Follow-up EDVT 12/04 05:18 Order name: CBC with Automated Diff EDMS 12/04 05:30 Order name: Comprehensive Metabolic Panel [facility] 12/04 05:30 Order name: Magnesium EDMS 12/04 09:11 Order name: Basic Metabolic Panel [facility] 12/04 09:35 Order name: Basic Metabolic Panel [facility] 12/04 11:59 Order name: Basic Metabolic Panel EDMS 12/04 13:38 Order name: BMP [facility] 12/04 14:01 Order name: Basic Metabolic Panel [facility] 12/04 17:22 Order name: BMP [facility] 12/04 17:56 Order name: Basic Metabolic Panel EDVT 12/04 20:05 Order name: Basic Metabolic Panel EDMS 12/04 20:47 Order name: Blood Culture EDVT 12/04 21:37 Order name: Basic Metabolic Panel EDVT 12/05 01:12 Order name: Basic Metabolic Panel EDVT 12/05 05:57 Order name: CBC with Automated Diff EDMS 12/05 05:57 Order name: Basic Metabolic Panel [facility] 12/05 05:57 Order name: Magnesium EDVT 12/02 20:37 Order name: EKG; Complete Time: 20:38 ms3 12/02 20:37 Order name: Accucheck; Complete Time: 20:40 ms3 12/02 20:37 Order name: Cardiac monitoring; Complete Time: 20:40 ms3 12/02 20:37 Order name: EKG - Nurse/Tech; Complete Time: 21:33 ms3 12/02 20:37 Order name: IV Saline Lock; Complete Time: 20:40 ms3 12/02 20:37 Order name: Labs collected and sent; Complete Time: 20:40 ms3 12/02 20:37 Order name: NPO; Complete Time: 20:40 ms3 12/02 20:37 Order name: O2 Per Protocol; Complete Time: 20:40 ms3 12/02 20:37 Order name: O2 Sat Monitoring; Complete Time: 20:40 ms3 12/02 20:37 Order name: Stroke Swallow Screen; Complete Time: 21:05 ms3 12/02 20:38 Order name: Urine Dipstick-Ancillary (obtain specimen); Complete Time: 21:33 ms3 12/02 22:17 Order name: Misc. Order: BMP at 2300; Complete Time: 23:05 la1 12/02 23:40 Order name: Misc. Order: 3% hypertonic saline. 100 ml over 2 hours; Complete Time: 00:09jmm EC/24 21:10 Rate is 80 beats/min. Rhythm is regular. Right axis deviation noted. WA interval is ms3 normal. Clinical impression: NSR with prolonged QT. Interpreted by me. Reviewed by me. Administered Medications: 22:16 Discontinued: NS 0.9% 1000 ml IV at 1000 ml once la1 21:08 Drug: NS 0.9% 1000 ml Route: IV; Rate: 1000 ml; Site: right antecubital; kl 21:08 Drug: Zofran (Ondansetron) 4 mg Route: IVP; Site: right antecubital; 22:51 Follow up: Response: No adverse reaction as6 21:20 CANCELLED (Duplicate Order): NS 0.9% 1000 ml IV at 1 bolus Per protocol; 1000 mL bolus [facility] 22:16 Drug: NS 0.9% 1000 ml Route: IV; Rate: 60 ml/hr; Site: left antecubital; la1 22:51 Follow up: IV Status: Infusion continued upon admission as6 Disposition: 12/03 02:08 Co-signature as Attending Physician, Derrek Meredith DO. ms3 Disposition Summary: 12/02/21 22:13 Hospitalization Ordered Hospitalization Status: Inpatient Admission jm Provider: Ceasar Levine Condition: Stable jmm Problem: new jmm Symptoms: are unchanged jmm Bed/Room Type: Standard [facility] Location: [facility] ER HOLD(12/02/21 22:25) Room Assignment: ERHOLD-(12/02/21 22:25) cg Diagnosis - Hypo-osmolality and hyponatremia jmm - Altered mental status, unspecified jmm Forms: - Medication Reconciliation Form jmm - SBAR form jmm Signatures: Dispatcher [employer] EDMS Isabel Jones RN RN kl Mickail, Joel, PA PA jmm Tong Terry, CARLOS ALBERTO-C J[employer]E INSTALLER-Cla1 Shanna Galvez RN RN Derrek Burns DO DO ms3 Michael Orourke RN RN as6 Johanny Nair PA PA sb3 Corrections: (The following items were deleted from the chart) 12/02 20:40 20:35 Head Brain W/ Wo Con+CT.RAD.BRZ ordered. EDMS EDMS 21:00 20:50 Abdomen Pelvis Wo Con+CT.RAD.BRZ ordered. EDMS EDMS 21:07 20:40 Head Brain Wo Cont ordered. EDMS EDMS 21:07 20:50 Head Angio+CT.RAD.BRZ ordered. EDMS EDMS 21:08 20:50 Neck Angio+CT.RAD.BRZ ordered. EDMS EDMS 21:08 20:50 Abdomen Pelvis Wo Con+CT.RAD.BRZ ordered. EDMS EDMS 21:08 20:57 Thorax Wo Con+CT.RAD.BRZ ordered. EDMS EDMS 21: 21:14 NS 0.9% 1000 ml IV at 1 bolus Per protocol; 1000 mL bolus ordered. hattie [facility] 21:48 20:39 URINALYSIS+U.LAB.BRZ ordered. EDVT EDMS 22:25 22:13 Intensive Care Unit [facility] cg 22:25 22:13 [facility] cg 22:32 21:52 Orthostatics ordered. gilberto as6
[2021-12-02] MEDS ORDERED: ONDANSETRON 4 MG/2 ML VIAL IV PRN (22:53)
--- NOTE | 2021-12-02 22:58 | P.HP ---
Certification for Inpatient Patient admitted to: Inpatient With expected LOS: >2 Midnights Patient will require the following post-hospital care: None Practitioner: I am a practitioner with admitting privileges, knowledge of patient current condition, hospital course, and medical plan of care. Services: Services provided to patient in accordance with Admission requirements found in Title 42 Section 412.3 of the Code of Federal Regulations Patient History Date of Service: 12/02/21 Reason for admission: Hyponatremia History of Present Illness: 61-year-old female with no known past medical history who has had a previous episode of hyponatremia presents to the emergency department for altered mental status. [place] the beach with [place] today they report that she had poor oral intake throughout the day as well as an episode of diarrhea and 2 episodes of vomiting after which she became altered/lethargic. She was evaluated in the emergency department found to have severe hyponatremia she had CT scans of her head without contrast, neck with contrast which were negative for acute findings she also had a CT of her chest abdomen pelvis which demonstrated possible enterocolitis. Patient still lethargic, moaning not answering questions initial sodium 116. Additional labs were ordered regarding level sodium level, ED provider discussed case with nephrology who recommended slow IV fluids and repeat sodium at 2300. Will admit patient to ICU for further evaluation and management of hyponatremia, altered mental status. Allergies No Known Allergies Allergy (Unverified 12/04/20 01:44) Home Medications: NK [No Home Meds] 12/04/20 - Past Medical/Surgical History Diabetic: No -: none -: Uterine cancer -: Hyponatremia -: Hysterectomy Psychosocial/ Personal History: Patient lives at home with family - Family History Family History: Reviewed- Non-Contributory - Social History Smoking Status: Never smoker Alcohol use: No CD- Drugs: No Caffeine use: Yes Place of Residence: Home Review of Systems is unable to be obtained Physical Examination - Physical Exam General: Alert, In no apparent distress, Oriented x1 HEENT: Atraumatic, PERRLA, Other (Mucous membranes dry), EOMI, Sclerae nonicteric Neck: Supple, 2+ carotid pulse no bruit, No LAD, Without JVD or thyroid abnormality Respiratory: Clear to auscultation bilaterally, Normal air movement Cardiovascular: Regular rate/rhythm, Normal S1 S2 Gastrointestinal: Normal bowel sounds, No tenderness Musculoskeletal: No tenderness Integumentary: No rashes Neurological: Normal speech, Normal strength at 5/5 x4 extr, Normal tone, Normal affect - Studies Laboratory Data (last 24 hrs) 12/02/21 20:42: PT 10.3, INR 0.94, APTT 28.7 12/02/21 20:42: WBC 10.0, Hgb 10.5 L, Hct 30.2 L, Plt Count 263 12/02/21 20:42: Sodium 116 L*, Potassium 3.1 L, BUN 9, Creatinine 0.82, Glucose 154 H Assessment and Plan - Plan Assessment: Severe hypotonic hyponatremia Metabolic encephalopathy secondary to severe hyponatremia Plan: Severe hypotonic hyponatremia: Case was discussed with nephrology by ED provider currently NS is infusing at 60 cc an hour with a repeat BMP coming up shortly. Additional studies ordered and pending. During her previous visit patient with similar presentation after visiting the [place], daughter cautioned on further trips she states she would no longer be taking her mother to the [place]. Q4 BMPs. Appreciate further input from nephrology. Monitor in ICU until mental status and sodium improve. Metabolic encephalopathy secondary to severe hyponatremia: Continue as above. DVT PPX: Lovenox Code status: Full Discharge Plan: Home Plan to discharge in: 72 Hours - Advance Directives Does patient have a Living Will: No Does patient have a Durable POA for Healthcare: No - Code Status/Comfort Care Code Status Assessed: Yes (Full code) Critical Care: No Time Spent Managing Pts Care (In Minutes): 70
[2021-12-02] MEDS ORDERED: NA CHLORIDE 0.9% 1,000 ML IV SCH (23:00)
[2021-12-02 23:07] VITALS: BMI 19.5
[2021-12-02 23:22] LABS: SARS-CoV-2 Antigen Rapid Res Negative (Negative)
[2021-12-02 23:57] LABS: Potassium 3.5 mmol/L (3.5-5.1)
[2021-12-03] MEDS ORDERED: NA CHLORIDE 3% 500 ML ONE (00:01)
[2021-12-03] MEDS ORDERED: ONDANSETRON 4 MG/2 ML VIAL ONE (02:14)
[2021-12-03 03:41] LABS: Potassium 3.4 mmol/L (3.5-5.1)
[2021-12-03] MEDS ORDERED: NA CHLORIDE 3% 500 ML IV SCH (04:00)
[2021-12-03] MEDS: KCL 20 MEQ/100 mL IVPB 100 ML IV SCH ×2 (04:00→06:00)
[2021-12-03] MEDS ORDERED: POTASSIUM CL 40 MEQ in NA CHLORIDE 0.9% 500 ML IV SCH (04:00)
[2021-12-03] MEDS ORDERED: KCL 20 MEQ/100 mL IVPB 200 ML IV ONE (04:18)
[2021-12-03] MEDS ORDERED: NA CHLORIDE 0.9% 250 ML ONE (04:18)
[2021-12-03 05:11] LABS: Absolute Lymphocytes (CBC) 0.8 K/uL (0.7-4.9); Lymphocytes % 7.3 % (15.3-44.8); MCV 87.8 fL (80-100); RBC Red Blood Cell Count 3.42 M/uL (3.86-4.86)
[2021-12-03 05:35] LABS: Magnesium 1.7 mg/dL (1.8-2.4); Thyroid Stimulating Hormone 0.689 uIU/mL (0.360-3.740)
--- NOTE | 2021-12-03 06:52 | P.PN ---
Date of Service: 12/03/21 Subjective: reportedly seizure witnessed by daughter; resolved spontaneously somnolence, moves extremities, opens eyes to noise sodium improving ROS: 10 point ROS unable to be obtained Physical exam GEN: somnolent, opens eyes to verbal stimuli CV: Regular rate and rhythm, no edema Pulm: Non-labored respirations on room air ABD: Soft, nontender, nondistended Integumentary: No rashes Neuro: somnolent, moves all extremities, opens eyes to verbal stimuli Problem List Severe hypotonic hyponatremia Metabolic encephalopathy secondary to severe hyponatremia seizure case discussed with nephro by ED provider nephrology assisting with IV fluids patient remains somnolent, more arousable today does not speak macedonian During her previous visit patient with similar presentation after visiting the [place], daughter cautioned on further trips she states she would no longer be taking her mother to the [place]. Q4 BMPs. Monitor in ICU until mental status and sodium improve. seizure - likely complication of hyponatremia DVT PPX: Lovenox Code status: Full Discharge Plan: Home Plan to discharge in: ~2 days Time Spent Managing Pts Care (In Minutes): 35
[2021-12-03 07:18] LABS: Potassium 4.1 mmol/L (3.5-5.1)
--- NOTE | 2021-12-03 07:51 | P.CNS ---
Chief Complaint: Hyponatremia History of Present Illness: Pt with past medical hx of hypertension was brought in for altered mental sta tus, found to be hyponatremic, with sodium of 116. In the ED, pt had one seizure. Renal has been consulted for further evaluation and management. Hx is limited because pt is lethargic Allergies No Known Allergies Allergy (Unverified 12/04/20 01:44) Home Medications: NK [No Home Meds] 12/04/20 - Past Medical/Surgical History Diabetic: No -: none -: Uterine cancer -: Hyponatremia -: Hysterectomy Psychosocial/ Personal History: Patient lives at home with family - Social History Alcohol use: No CD- Drugs: No Caffeine use: Yes Place of Residence: Home Review of Systems General: Weakness ENT: Unremarkable Respiratory: Unremarkable Cardiovascular: Unremarkable Gastrointestinal: Unremarkable Musculoskeletal: Back Pain Integumentary: Unremarkable Neurological: Unremarkable Physical Examination Temp Pulse Resp BP Pulse Ox 99.2 F 78 19 104/69 100 12/03/21 07:30 12/03/21 07:30 12/03/21 07:30 12/03/21 07:30 12/03/21 07:30 General: In no apparent distress, Other HEENT: Atraumatic, PERRLA, Mucous membr. moist/pink, EOMI, Sclerae nonicteric Neck: Supple, 2+ carotid pulse no bruit, No LAD, Without JVD or thyroid abnorma lity Respiratory: Clear to auscultation bilaterally, Normal air movement Cardiovascular: Regular rate/rhythm, Normal S1 S2 Musculoskeletal: No tenderness Integumentary: No rashes Laboratory Data (last 24 hrs) 12/02/21 20:42: PT 10.3, INR 0.94, APTT 28.7 12/02/21 20:42: WBC 10.0, Hgb 10.5 L, Hct 30.2 L, Plt Count 263 12/02/21 20:42: Sodium 116 L*, Potassium 3.1 L, BUN 9, Creatinine 0.82, Glucose 154 H Conclusions/Impression: Problem Assessment and plan Hyponatremia 2/2 siadh; goal correction in 24hr is 122 Sodium overcorrected, ordered ddavap and fluids Strict i/o bmp q 3 Trend urine electrolytes and osmolality Thank you for this interesting consult. Will continue to follow.
[2021-12-03] MEDS ORDERED: ENOXAPARIN 40 MG/0.4 ML SQ ONE (08:20)
[2021-12-03] MEDS: ENOXAPARIN 40 MG/0.4 ML SQ SCH (09:00)
--- NOTE | 2021-12-03 09:26 | EKG ---
Test Date: 2021-12-02 Test Time: 21:10:59 Stonehand: FLORINDA MEASUREMENT RESULTS: Intervals: Rate: 80 AR: 138 QRSD: 102 QT: 438 QTc: 505 [place]: P: 82 AR: 138 QRS: 97 T: 96 INTERPRETIVE STATEMENTS: Normal sinus rhythm Rightward axis Nonspecific T wave abnormality Prolonged QT Abnormal ECG Compared to ECG 12/03/2020 18:46:59 T-wave abnormality now present Prolonged QT interval now present Electronically Signed On 12-03-21 09:24:41 CDT by Alvino Fair
[2021-12-03 10:09] LABS: Potassium 4.3 mmol/L (3.5-5.1)
[2021-12-03 13:24] LABS: Potassium 3.6 mmol/L (3.5-5.1)
[2021-12-03] MEDS ORDERED: NA CHLORIDE 0.9% SQ ONE (14:02)
[2021-12-03] MEDS ORDERED: VASOPRESSIN SQ ONE (14:02)
[2021-12-03] MEDS ORDERED: DESMOPRESSIN 4 MCG/ML AMP SQ ONE (14:30)
[2021-12-03] MEDS ORDERED: DESMOPRESSIN 4 MCG/ML AMP SQ SCH (17:00)
[2021-12-03 17:06] LABS: Potassium 3.5 mmol/L (3.5-5.1)
[2021-12-03] MEDS ORDERED: D5W 1,000 ML IV SCH ×2 (18:00→23:00)
[2021-12-03 19:15] LABS: Potassium 3.5 mmol/L (3.5-5.1)
[2021-12-03] MEDS ORDERED: ACETAMINOPHEN 650MG/RECT SUPP PR PRN (20:04)
[2021-12-03] MEDS: PIPER TAZO 3.375 GM in NA CHLORIDE 0.9% 100 ML IV SCH (21:00)
[2021-12-03] MEDS ORDERED: ACETAMINOPHEN 650MG/RECT SUPP PR ONE (21:21)
[2021-12-03] MEDS ORDERED: NA CHLORIDE 0.9% 100 ML ONE (21:21)
[2021-12-03] MEDS ORDERED: PIPERACIL/TAZO 3.375 GM VIAL IV ONE (21:22)
[2021-12-04 05:14] LABS: Absolute Lymphocytes (CBC) 2.1 K/uL (0.7-4.9); Hematocrit 27.5 % (36.0-45.0); Lymphocytes % 24.9 % (15.3-44.8); MPV 6.3 fL (7.6-11.3); RBC Red Blood Cell Count 3.13 M/uL (3.86-4.86)
[2021-12-04 05:29] LABS: Albumin 2.9 g/dL (3.4-5.0); Bilirubin Total 0.6 mg/dL (0.2-1.0); Magnesium 2.2 mg/dL (1.8-2.4); Potassium 3.2 mmol/L (3.5-5.1); Protein, Total 6.7 g/dL (6.4-8.2)
[2021-12-04] MEDS ORDERED: D5W 1,000 ML IV ONE ×2 (05:49→10:01)
[2021-12-04] MEDS ORDERED: KCL 20 MEQ/100 mL IVPB 20 MEQ/100 ML BAG IV SCH ×2 (06:00→16:00)
[2021-12-04] MEDS ORDERED: KCL 20 MEQ/100 mL IVPB 100 ML IV ONE ×2 (06:13→15:33)
[2021-12-04] MEDS: PIPER TAZO 3.375 GM in NA CHLORIDE 0.9% 100 ML IV SCH ×3 (08:00→21:00)
[2021-12-04] MEDS: ENOXAPARIN 40 MG/0.4 ML SQ SCH (09:00)
[2021-12-04 09:35] LABS: Potassium 3.4 mmol/L (3.5-5.1)
[2021-12-04] MEDS ORDERED: D5W 1,000 ML IV SCH (10:00)
[2021-12-04] MEDS ORDERED: NA CHLORIDE 0.9% 100 ML ONE ×2 (10:01→17:25)
[2021-12-04] MEDS ORDERED: PIPERACIL/TAZO 3.375 GM VIAL IV ONE ×2 (10:01→17:26)
[2021-12-04] MEDS ORDERED: ONDANSETRON 4 MG/2 ML VIAL ONE (10:51)
[2021-12-04] MEDS ORDERED: FENTANYL CITR 100 MCG/2 ML ONE (10:51)
[2021-12-04 11:59] LABS: Potassium 3.3 mmol/L (3.5-5.1)
[2021-12-04 14:01] LABS: Potassium 3.2 mmol/L (3.5-5.1)
[2021-12-04] MEDS ORDERED: POTASSIUM CL SA 10 MEQ TAB PO ONE ×2 (15:13→15:32)
[2021-12-04] MEDS ORDERED: KCL IV SCH (16:00)
--- NOTE | 2021-12-04 17:11 | P.PN ---
Subjective Date of Service: 12/04/21 Chief Complaint: Hyponatremia Physical Examination - Vital Signs Temperature: 98.6 F Blood Pressure: 120/75 Pulse: 74 Respirations: 16 Pulse Ox (%): 100 Assessment And Plan - Plan Physical exam GEN: Awake and interactive, NAD CV: Regular rate and rhythm, no edema Pulm: Clear to auscultation bilaterally. ABD: Soft, nontender, nondistended Integumentary: No rashes Neuro: No focal motor deficit. Problem List Severe hypotonic hyponatremia Metabolic encephalopathy secondary to severe hyponatremia seizure Patient seen by nephrology who is considering SIADH. She was given desmopressin. Sodium level overcorrected and patient briefly treated with D5 water after which sodium level declined. Nephrology is managing. Mental status improved. She is awake and tolerating diet. Continue Q4 BMPs. seizure - likely complication of hyponatremia Can downgrade from ICU to medical floor with telemetry. No indication for infection. Discontinue IV Zosyn. DVT PPX: Lovenox Code status: Full Discharge Plan: Home
[2021-12-04] MEDS ORDERED: NA CHLORIDE 0.9% 250 ML ONE (17:13)
[2021-12-04 17:56] LABS: Potassium 4.6 mmol/L (3.5-5.1)
[2021-12-04 21:37] LABS: Potassium 3.8 mmol/L (3.5-5.1)
[2021-12-05] MEDS ORDERED: PIPERACIL/TAZO 3.375 GM VIAL IV ONE ×2 (02:30→04:51)
[2021-12-05] MEDS ORDERED: NA CHLORIDE 0.9% 100 ML ONE ×2 (02:31→04:52)
[2021-12-05] MEDS: PIPER TAZO 3.375 GM in NA CHLORIDE 0.9% 100 ML IV SCH (05:00)
[2021-12-05 05:17] LABS: Absolute Lymphocytes (CBC) 1.1 K/uL (0.7-4.9); Hematocrit 31.6 % (36.0-45.0); Lymphocytes % 17.4 % (15.3-44.8); MCV 88.2 fL (80-100); MPV 6.6 fL (7.6-11.3); RBC Red Blood Cell Count 3.58 M/uL (3.86-4.86)
[2021-12-05 05:38] LABS: Magnesium 2.7 mg/dL (1.8-2.4); Potassium 3.8 mmol/L (3.5-5.1)
--- NOTE | 2021-12-05 06:56 | P.PN ---
Subjective Date of Service: 12/04/21 Chief Complaint: Hyponatremia More alert. Doing better today, wants to discharge. Explained to her that it was not a safe discharge until her sodium corrects adequately. Physical Examination - Vital Signs Temperature: 97.8 F Blood Pressure: 130/65 Pulse: 66 Respirations: 17 Pulse Ox (%): 99 - Physical Exam General: Alert, In no apparent distress HEENT: Atraumatic, PERRLA, EOMI Neck: Supple, JVD not distended Cardiovascular: Regular rate/rhythm, Normal S1 S2 Gastrointestinal: Normal bowel sounds, No tenderness Integumentary: No rashes Neurological: Normal speech, Normal tone, Normal affect Lymphatics: No axilla or inguinal lymphadenopathy Assessment And Plan - Plan Problem Assessment and plan Hyponatremia 2/2 siadh; goal correction in 24hr is 128, Following sodium closely and adjusting ivf as needed Strict i/o bmp q 4 Trend urine electrolytes and osmolality Likely discharge in the morning once sodium is >128
--- NOTE | 2021-12-05 08:51 | P.DS ---
Admission Date: 12/02/21 Discharge Date: 12/05/21 Disposition: ROUTINE DISCHARGE Discharge Condition: FAIR Reason for Admission: Hyponatremia Brief History of Present Illness: 61-year-old female with no known past medical history who has had a previous episode of hyponatremia presented to the emergency department for altered mental status. [place] the [place] and they reported that she had poor oral intake throughout the day as well as an episode of diarrhea and 2 episodes of vomiting after which she became altered/lethargic. She was evaluated in the emergency department found to have severe hyponatremia she had CT scans of her head without contrast, neck with contrast which were negative for acute findings. She also had a CT of her chest abdomen pelvis which demonstrated possible enterocolitis. Patient was still lethargic, moaning not answering questions initial sodium 116. Patient admitted for further management. Hospital Course: Diagnosis Severe hypotonic hyponatremia Metabolic encephalopathy secondary to severe hyponatremia seizure Patient admitted to the ICU. SIADH suspected. Patient treated with IV normal saline briefly Patient seen by nephrology who treated her with desmopressin. Sodium level improved but overcorrected and patient briefly treated with D5 water after which sodium level declined. Later placed on fluid restriction and D5 water discontinued. Sodium level improved to normal Mental status improved with improvement in the sodium level and was back to baseline. He tolerated diet. Noted patient had a seizure episode- likely complication of hyponatremia. No more seizures during the hospital stay She was treated briefly with IV Zosyn for possible enterocolitis. Patient clinically improved and deemed stable for discharge. Vital Signs/Physical Exam: Temp Pulse Resp BP Pulse Ox 98.4 F 76 17 125/61 98 12/05/21 07:00 12/05/21 08:00 12/05/21 08:00 12/05/21 08:00 12/05/21 08:00 General: Alert, In no apparent distress, Oriented x3 HEENT: Mucous membr. moist/pink Neck: Supple, JVD not distended Respiratory: Clear to auscultation bilaterally, Normal air movement Cardiovascular: No edema, Regular rate/rhythm, Normal S1 S2 Gastrointestinal: Normal bowel sounds, Soft and benign, Non-distended Musculoskeletal: No swelling, No erythema Integumentary: No rashes, No cyanosis Neurological: Normal speech, Normal strength at 5/5 x4 extr, Cranial nerves 3-12 intact Laboratory Data at Discharge: WBC 6.3 K/uL (4.3-10.9) D 12/05/21 04:45 Hgb 10.9 g/dL (12.0-15.0) L 12/05/21 04:45 Hct 31.6 % (36.0-45.0) L 12/05/21 04:45 Plt Count 288 K/uL (152-406) 12/05/21 04:45 PT 10.3 SECONDS (9.5-12.5) 12/02/21 20:42 INR 0.94 12/02/21 20:42 APTT 28.7 SECONDS (24.3-36.9) 12/02/21 20:42 Sodium 135 mmol/L (136-145) L 12/05/21 04:45 Potassium 3.8 mmol/L (3.5-5.1) 12/05/21 04:45 BUN 6 mg/dL (7-18) L 12/05/21 04:45 Creatinine 0.72 mg/dL (0.55-1.3) 12/05/21 04:45 Glucose 122 mg/dL (74-106) H 12/05/21 04:45 Phosphorus 3.0 mg/dL (2.5-4.9) 12/03/21 05:01 Magnesium 2.7 mg/dL (1.8-2.4) H D 12/05/21 04:45 Total Bilirubin 0.6 mg/dL (0.2-1.0) 12/04/21 05:00 AST 81 U/L (15-37) H 12/04/21 05:00 ALT 55 U/L (12-78) 12/04/21 05:00 Alkaline Phosphatase 65 U/L (45-117) 12/04/21 05:00 Home Medications: NK [No Home Meds] 12/04/20 Physician Discharge Instructions: Please restrict free water to 1500 ml/day. Diet: Regular Activity: Ad skylar Followup: ELIE DELGADILLO [Primary Care Provider] - Time spent managing pt's care (in minutes): 36
[2021-12-05 12:39] VITALS: TEMP 97.4
[2021-12-05 12:44] VITALS: O2SAT 99
[2021-12-05 12:48] VITALS: BP 124/60
== END 2021-12-05 09:32 | disposition home or self-care (01) | DRG 643 ==
LOC: ER 20:19 → ERHOLD 22:26
PROVIDERS: ADMIT Hospitalist; ATTEND Hospitalist
DX: E22.2 Syndrome of inappropriate secretion of antidiuretic hormone (principal); G93.41 Metabolic encephalopathy; R56.9 Unspecified convulsions; K52.9 Noninfective gastroenteritis and colitis, unspecified; Z85.42 Personal history of malignant neoplasm of other parts of uterus; Z20.822 Contact with and (suspected) exposure to COVID-19
CPT/HCPCS: 36415; 51702; 70450; 70496; 70498; 71045; 71250; 74176; 80048; 80053; 81001; 81003; 82435; 82533; 82570; 82947; 83605; 83735; 83930; 83935; 84100; 84132; 84300; 84439; 84443; 84484; 85025; 85610; 85730; 87040; 87811; 93005; 96361; 96374; 99285; J1650; J2405; J2543; J2597; J3010; J3480; J7030; J7050; J7131; Q9967